=== PATIENT | female | born 1950 | race Caucasian/White ===

== ENCOUNTER → 2023-05-27 | Day surgery (SDC) | payer OTHER ==
[~2023-05-27] VITALS: Ht 170.1 cm; Wt 63.0 kg
[~2023-05-27] MED LIST: ARNUITY ELLIPT50 MCG INH; CALCIUM MAGNES1 EAC1 PO; CENTRUM SILVER1 EACH PO; FLORASTOR250 MG PO; GLUCOSAMINE HC500 M1 PO; LEVOTHYROXINE125 MCG PO; LEXAPRO10 MG PO; METOPROLOL SUC100 M1 PO; MIRALAX17 GM PO; NORVASC5 MG PO; OCUFLOX 0.3% 5 M5 ML OT; PRESERVISION A1 EAC8 PO
[2023-05-27 11:10] VITALS: BP 141/85
[2023-05-27 13:15] VITALS: BP 180/64
[2023-05-27 13:30] VITALS: BP 177/65
[2023-05-27 13:45] VITALS: BP 143/62
[2023-05-27 14:00] VITALS: BP 124/61
[2023-05-27 14:13] VITALS: BP 149/62
== END ==
LOC: SDC 05-22 11:00
PROVIDERS: ATTEND Specialist
DX: H65.493 Other chronic nonsuppurative otitis media, bilateral (principal)